=== PATIENT | male | born 1995 | race Caucasian/White ===

== ENCOUNTER 2020-11-12 21:28 | Emergency (ER) | payer OTHER ==
[2020-11-12] MEDS ORDERED: Orphenadrine 60 MG/2 ML Inj IM ONE (22:52)
[2020-11-12] MEDS ORDERED: HYDROmorphone 1 MG/ML Syringe IM ONE (22:52)
[2020-11-12] MEDS ORDERED: Ketorolac 60 MG/2 ML SDV IM ONE (22:52)
[2020-11-12] MEDS ORDERED: Ondansetron 4 MG Tab.DIS PO ONE (22:52)
--- NOTE | 2020-11-13 00:35 | EDM.PDOC ---
ED HPI GENERAL MEDICAL PROBLEM - General Chief Complaint: Back Pain or Injury Stated Complaint: HURT BACK AT WORK Time Seen by Provider: 11/12/20 22:51 - History of Present Illness INITIAL COMMENTS - FREE TEXT/NARRATIVE: HISTORY AND PHYSICAL: History of present illness: This is a 25-year-old gentleman with no significant past medical history presents ER today secondary to acute onset of lower back pain while he was try to pull something out of a ditch at work today. Patient reports that he felt a couple pops in his back and started having excruciating pain. Patient denies any weakness to his lower extremities. Patient has any paresthesias to his perineal rectal region. Patient denies any loss of bowel or bladder function. Patient reports that he has had issues with his back in the past and does have a history of a lumbar fracture in the distant past. Patient has any recent fevers, shakes, chills, nausea, vomiting, diarrhea, dysuria, frequency, urgency. 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 Patient has any paresthesias to his lower extremities. Review of systems: As per history of present illness and below otherwise all systems reviewed and negative. Past medical history: As per history of present illness and as reviewed below otherwise noncontributory. Surgical history: As per history of present illness and as reviewed below otherwise noncontributory. Social history: No reported history of drug abuse. Family history: As per history of present illness and as reviewed below otherwise noncontributory. Physical exam: This patient was seen and evaluated during the 2019 SARS-CoV-2 novel coronavirus pandemic period. Community viral transmission is ongoing at time of this encounter and the emergency department is operating under pandemic response procedures. Constitutional: Patient is oriented to person, place, and time. Appears well- developed and well-nourished. No distress. HEENT: Moist mucous membranes Head: Normocephalic and atraumatic Eyes: Right eye exhibits no discharge. Left eye exhibits no discharge. No scleral icterus Neck: Normal range of motion. No tracheal deviation present. Cardiovascular: Normal rate and regular rhythm. Pulmonary: Effort normal, no respiratory distress. Abdominal: No distention Musculoskeletal: Normal range of motion Neurologic: Alert and oriented to person, place and time. Skin: [place], warm and dry. Psychiatric: Normal mood and affect. Behavior is normal. Judgment and thought content normal. Nursing note and vital signs have been reviewed Neuro: A&Ox3. Cranial nerves II-XII grossly intact, 5/5 strength to bilateral upper and lower extremities, sensation intact to bilateral upper and lower extremities. Patient is able to ambulate in the ED with stable gait but does appear to be uncomfortable when he stands up straight. Diagnostics: Lumbar CT scan: Therapeutics: Toradol, Norflex, Dilaudid IM Assessment and plan: 25-year-old gentleman who presents ER today with acute low back pain secondary to mechanical strain. Patient is lumbar CT scans unremarkable. Patient will be discharged home with ibuprofen, [place], Flexeril to assist with his pain and discomfort. Patient in the ED did receive Toradol Norflex and Dilaudid with significant improvement and is currently ambulating ER without significant difficulty. Patient's presentation does not appear to be consistent with an acute cord injury and the patient does not exhibit any signs or symptoms of be concerning for cauda equina syndrome. Patient will be given instructions to follow-up with his doctor in the next 1 to 2 days for Workmen's Comp. Reassessment at the time of disposition demonstrates that the patient is in no acute distress. The patient has remained stable throughout the entire ED visit and is without objective evidence for acute process requiring urgent intervention or hospitalization. The patient is stable for discharge, counseling is provided as documented above, discussed symptomatic treatment and specific conditions for return. I have spoken with the patient/caregiver and discussed todays findings, in addition to providing specific details for the plan of care. Questions are answered and there is agreement with the plan. Definitive disposition and diagnosis as appropriate pending reevaluation and review of above. Lower Back Pain Score (Numeric/FACES): 9 - Related Data Allergies Allergy/AdvReac Type Severity Reaction Status Date / Time No Known Allergies Allergy Verified 11/12/20 22:48 Home Meds: Home Meds Cyclobenzaprine [Flexeril] 10 mg PO TID PRN #20 tab 11/13/20 [Rx] Hydrocodone/Acetaminophen [Hydrocodone-Acetamin 5-325 mg] 1 each PO Q6HR PRN #14 tab 11/13/20 [Rx] Ibuprofen 600 mg PO Q6HR PRN #30 tablet 11/13/20 [Rx] Past Medical History Musculoskeletal History: Reports: Other (See Below) Other Musculoskeletal History: fx Endocrine/Metabolic History: Reports: Obesity/BMI 30+ Social & Family History - Recreational Drug Use Recreational Drug Use: No ED ROS GENERAL - Review of Systems Review Of Systems: See Below ED EXAM, GENERAL - Physical Exam Exam: See Below Course - Vital Signs Last Recorded V/S: Last Vital Signs Temp 98.2 F 11/13/20 00:49 Pulse 84 11/13/20 00:49 Resp 18 11/13/20 00:49 BP 131/72 11/13/20 00:49 Pulse Ox 98 11/13/20 00:49 - Orders/Labs/Meds Meds: Medications Discontinued Medications Generic Name Dose Route Start Last Admin Trade Name Freq PRN Reason Stop Dose Admin Hydromorphone HCl 1 mg 11/12/20 22:52 11/12/20 23:14 Hydromorphone 1 Mg/Ml Syringe IM 11/12/20 22:53 1 mg ONETIME ONE Administration Ketorolac Tromethamine 60 mg 11/12/20 22:52 11/12/20 23:14 Ketorolac 60 Mg/2 Ml Sdv IM 11/12/20 22:53 60 mg ONETIME ONE Administration Ondansetron HCl 4 mg 11/12/20 22:52 11/12/20 23:15 Ondansetron 4 Mg Tab.Dis PO 11/12/20 22:53 4 mg ONETIME ONE Administration Orphenadrine Citrate 60 mg 11/12/20 22:52 11/12/20 23:13 Orphenadrine 60 Mg/2 Ml Inj IM 11/12/20 22:53 60 mg ONETIME ONE Administration Departure - Departure Time of Disposition: 00:31 Disposition: Home, Self-Care 01 Condition: Good Clinical Impression: Lumbar herniated disc Acute low back pain Qualifiers: Back pain laterality: midline Sciatica presence: without sciatica Qualified Code(s): M54.5 - Low back pain - Discharge Information Prescriptions: Cyclobenzaprine [Flexeril] 10 mg PO TID PRN #20 tab PRN Reason: Muscle Spasm Hydrocodone/Acetaminophen [Hydrocodone-Acetamin 5-325 mg] 1 each PO Q6HR PRN #14 tab PRN Reason: Pain Ibuprofen 600 mg PO Q6HR PRN #30 tablet PRN Reason: Pain Instructions: Acute Back Pain, Adult, Herniated Disk Referrals: PCP,None [Primary Care Provider] - Forms: ED Department Discharge Additional Instructions: You were seen and evaluated in the ER today secondary to acute lower back injury resulting in pain. Your CT scan of your back does not show any acute pathology or injury. You will be sent home with a prescription for ibuprofen, Flexeril, [place] to assist you with pain. You will be given a work note for 2 days to get some rest. You will need to follow-up with your Workmen's Comp. doctor for further evaluation since this is a work-related injury. [facility] [address] [place] [address] The following information is given to patients seen in the emergency department who are being discharged to home. This information is to outline your options for follow-up care. We provide all patients seen in our emergency department with a follow-up referral. The need for follow-up, as well as the timing and circumstances, are variable depending upon the specifics of your emergency department visit. If you don't have a primary care physician on staff, we will provide you with a referral. We always advise you to contact your personal physician following an emergency department visit to inform them of the circumstance of the visit and for follow-up with them and/or the need for any referrals to a consulting specialist. The emergency department will also refer you to a specialist when appropriate. This referral assures that you have the opportunity for follow-up care with a specialist. All of these measure are taken in an effort to provide you with optimal care, which includes your follow-up. Under all circumstances we always encourage you to contact your private physician who remains a resource for coordinating your care. When calling for follow-up care, please make the office aware that this follow-up is from your recent emergency room visit. If for any reason you are refused follow-up, please contact the [facility] Emergency Department at and asked to speak to the emergency department charge nurse. [facility] [address] [place] [address] [facility] [address] [place] [address] Sepsis Event Note (ED) - Evaluation Sepsis Screening Result: No Definite Risk - Focused Exam Vital Signs: Vital Signs Temp Pulse Resp BP Pulse Ox 11/13/20 00:49 98.2 F 84 18 131/72 98 11/12/20 23:45 78 18 140/78 98 11/12/20 22:44 97.6 F 75 20 149/67 H 96
--- NOTE | 2020-11-13 00:58 | CT ---
For Patients: As a result of the Century Cures Act, medical imaging exams and procedure reports are released immediately into your electronic medical record. You may view this report before your referring provider. If you have questions, please contact your health care provider. Indication: Back pain following injury Technique: Nonenhanced axial CT imaging through the lumbar spine. Sagittal and coronal reconstructions are provided. Comparison: None Findings: The lumbar vertebral bodies are normal in height. No fracture is demonstrated. There is normal spinal alignment. Very mild S shaped thoracolumbar curvature is suggested. There is no prevertebral edema or paraspinal hematoma. There is no significant degenerative disc height loss. 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 Superimposed stenosis due to disc bulging is suggested at L3-4 and L4-5. Note is made of decreased attenuation of the visualized liver parenchyma, consistent with steatosis. Impression: 1. No acute fracture or traumatic malalignment. 2. 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 Degree of stenosis can be better characterized with MRI, if clinically warranted. 3. Incidentally noted hepatic steatosis. Please note that all CT scans at this facility use dose modulation, iterative reconstruction, and/or weight-based dosing when appropriate to reduce radiation dose to as low as reasonably achievable. Dictated by Nguyen Rothman MD @ 11/13/2020 12:56:[address] Nguyen Rothman @ Nov 13 2020 12:56AM
== END 2020-11-13 01:15 | disposition home or self-care (01) ==
LOC: MW.ED 21:28
DX: M51.26 Other intervertebral disc displacement, lumbar region (principal); E66.9 Obesity, unspecified; Z68.41 Body mass index [BMI] 40.0-44.9, adult; X50.1XXA Overexertion from prolonged static or awkward postures, initial encounter; Y99.0 Civilian activity done for income or pay
CPT/HCPCS: 72131; 96372; 99283; A9270; J1170; J1885; J2360